=== PATIENT | male | born 1960 | race Native Hawaiian/Other Pacific Islander ===

== ENCOUNTER 2022-04-07 07:38 | Outpatient (CLI) | payer OTHER | END 2022-04-07 18:57 | disposition home or self-care (01) | LOC: CT 07:38 | PROVIDERS: ATTEND Nurse Practitioner Family | DX: R10.30 Lower abdominal pain, unspecified (principal) | CPT/HCPCS: 36415; 82565; 84520; Q9963 ==

== ENCOUNTER 2022-07-09 07:18 | Outpatient (CLI) | payer OTHER ==
[2022-07-09 08:43] LABS: POTASSIUM 3.9 mmol/L (3.6-5.2)
[2022-07-09 08:54] LABS: PLATELET COUNT 240 K/uL (142-355)
== END 2022-07-09 18:59 | disposition home or self-care (01) ==
LOC: LAB 07:18
DX: K52.89 Other specified noninfective gastroenteritis and colitis (principal); Z90.49 Acquired absence of other specified parts of digestive tract
CPT/HCPCS: 36415; 80053; 82784; 83516; 83630; 84443; 85027; 85652; 86141; 87015; 87045; 87324; 87328; 87329; 87449; 87899